=== PATIENT | female | born 1965 | race Caucasian/White ===

== ENCOUNTER 2022-07-04 23:26 | Emergency (ER) | payer BC ==
--- OUTSIDE RECORDS SUMMARY | 2022-07-04 23:29 | XMS REPORT | Continuity of Care Document ---
:1965 Author Organization [facility] t Address [address] [place] [address] [place] [id number] Care Team Providers Name Role Phone DAR Attending Clinician Unavailable Yoseph Attending Clinician Unavailable DAR Admitting Clinician Unavailable Yoseph Admitting Clinician Unavailable Payers Payer Name Policy Type Policy Number Effective Date Expiration Date [id number] 2013 00:00:00 [place] Problems This patient has no known problems. Allergies, Adverse Reactions, Alerts This patient has no known allergies or adverse reactions. Medications This patient has no known medications. Procedures This patient has no known procedures. Encounters Start End Encounter Admission Attending Care Care Encounter Source Date/Time Date/Time Type Type Clinicians Facility Department ID 2022-04-11 2022-04-11 Outpatient PAUL [facility] [id number] [place] 00:00:00 00:00:00 _BLAYNE [id number] da [facility] Program 2020-07-26 2020-07-26 Outpatient Yoseph [facility] G [id number] [place] 02:45:00 02:45:00 [id number] Results This patient has no known results.
--- NOTE | 2022-07-04 23:42 | EDPHYS ---
Physician Documentation [facility] Name: Tio Bhandari Age: 57 yrs Sex: Female : 1965 Arrival Date: 07/04/2022 Time: 23:29 Bed 7 Private MD: ED Physician Raymundo Moran HPI: 07/04 23:46 This 57 yrs old Female presents to ER via Ambulatory with complaints of Toothache, Jaw snw Pain. 23:46 The patient presents with broken tooth/teeth. The problem is located in the upper right snw second molar (#2). Onset: The symptoms/episode began/occurred suddenly, 2 day(s) ago, and became worse today. Duration: The symptoms are continuous. Associated signs and symptoms: The patient has no apparent associated signs or symptoms. Severity of symptoms: At their worst the symptoms were moderate. It is unknown whether or not the patient has had similar symptoms in the past. The patient has been recently seen by a physician: the patient's primary care provider, with different complaint(s), the patient was seen for back pain. 23:47 Pt placed dental cement to area, has taken motrin 800mg TID today without relief. snw Historical: - Allergies: 23:46 No Known Allergies; aa9 - PMHx: 23:47 Chronic back pain; aa9 - PSHx: 23:47 section; breast reduction; aa9 - Social history:: Smoking status: Reported history of juuling and/or vaping. ROS: 23:46 Constitutional: Negative for fever, chills, and weight loss, Eyes: Negative for injury, snw pain, redness, and discharge, Neck: Negative for injury, pain, and swelling, Cardiovascular: Negative for chest pain, palpitations, and edema, Respiratory: Negative for shortness of breath, cough, wheezing, and pleuritic chest pain, Abdomen/GI: Negative for abdominal pain, nausea, vomiting, diarrhea, and constipation, Back: Negative for injury and pain, : Negative for injury, bleeding, discharge, and swelling, MS/Extremity: Negative for injury and deformity, Skin: Negative for injury, rash, and discoloration, Neuro: Negative for headache, weakness, numbness, tingling, and seizure. 23:46 ENT: Positive for dental pain. Exam: 23:44 Constitutional: This is a well developed, well nourished patient who is awake, alert, snw and in no acute distress. Head/Face: Normocephalic, atraumatic. Eyes: Pupils equal round and reactive to light, extra-ocular motions intact. Lids and lashes normal. Conjunctiva and sclera are non-icteric and not injected. Cornea within normal limits. Periorbital areas with no swelling, redness, or edema. Neck: Trachea midline, no thyromegaly or masses palpated, and no cervical lymphadenopathy. Supple, full range of motion without nuchal rigidity, or vertebral point tenderness. No Meningismus. Chest/axilla: Normal chest wall appearance and motion. Nontender with no deformity. No lesions are appreciated. Cardiovascular: Regular rate and rhythm with a normal S1 and S2. No gallops, murmurs, or rubs. Normal PMI, no JVD. No pulse deficits. Respiratory: Lungs have equal breath sounds bilaterally, clear to auscultation and percussion. No rales, rhonchi or wheezes noted. No increased work of breathing, no retractions or nasal flaring. Abdomen/GI: Soft, non-tender, with normal bowel sounds. No distension or tympany. No guarding or rebound. No evidence of tenderness throughout. Skin: Warm, dry with normal turgor. Normal color with no rashes, no lesions, and no evidence of cellulitis. MS/ Extremity: Pulses equal, no cyanosis. Neurovascular intact. Full, normal range of motion. Neuro: Awake and alert, GCS 15, oriented to person, place, time, and situation. Cranial nerves II-XII grossly intact. Motor strength 5/5 in all extremities. Sensory grossly intact. Cerebellar exam normal. Normal gait. Psych: Awake, alert, with orientation to person, place and time. Behavior, mood, and affect are within normal limits. 23:44 ENT: External ear(s): are unremarkable, Nose: is normal, Mouth: is normal, Dental exam: dental caries, that is moderate, specifically in the upper right second molar (#2). 23:44 Back: pain, that is moderate, of the low back area, pt had injections today with her PCP. Vital Signs: 23:36 BP 172 / 104; Pulse 78; Pulse Ox 99% on R/A; aa9 23:44 BP 157 / 85; Pulse 68; Resp 18 S; Temp 97.5(O); Pulse Ox 98% on R/A; Weight 92.99 kg aa9 (R); Height 5 ft. 5 in. (165.10 cm) (R); Pain 10/; 23:44 Body Mass Index 34.11 (92.99 kg, 165.10 cm) aa9 MDM: 23:34 Patient medically screened. snw 23:46 Data reviewed: vital signs, nurses notes. Data interpreted: Pulse oximetry: on room air snw is 100 %. Interpretation: normal. Counseling: I had a detailed discussion with the patient and/or guardian regarding: the historical points, exam findings, and any diagnostic results supporting the discharge/admit diagnosis, the need for outpatient follow up, to return to the emergency department if symptoms worsen or persist or if there are any questions or concerns that arise at home. Special discussion: I have referred the patient to see his PCP for further evaluation of high blood pressure. Based on the history and exam findings, there is no indication for further emergent testing or inpatient evaluation. I discussed with the patient/guardian the need to see a dentist for further evaluation of the symptoms. Administered Medications: 23:53 Drug: Dilaudid (HYDROmorphone) 1 mg Route: IM; Site: right gluteus; lg3 23:53 Follow up: Response: No adverse reaction; Marked relief of symptoms lg3 23:53 Drug: Clindamycin 300 mg Route: PO; lg3 23:53 Follow up: Response: No adverse reaction lg3 Disposition: 07/05 01:12 Co-signature as Attending Physician, Raymundo Moran MD. rn Disposition Summary: 07/04/22 23:41 Discharge Ordered Location: Home snw Condition: Stable snw Diagnosis - Dental root caries snw - Elevated blood-pressure reading, without diagnosis of hypertension snw Followup: snw - With: Emergency Department - When: As needed - Reason: Worsening of condition Followup: snw - With: Private Physician - When: Tomorrow - Reason: Recheck today's complaints, Continuance of care, Re-evaluation by your physician Discharge Instructions: - Discharge Summary Sheet snw - Dental Caries, Adult snw - Dental Pain snw - Hypertension, Adult snw - Diet and Dental Disease snw - DASH Eating Plan snw - Form - Blood Pressure Record Sheet snw Forms: - Medication Reconciliation Form snw - Thank You Letter snw - Antibiotic Education snw - Prescription Opioid Use snw Prescriptions: - Clindamycin HCl 300 mg Oral Capsule - take 1 capsule by ORAL route every 6 hours for 10 days; 40 capsule; Refills: 0, snw Product Selection Permitted - Tylenol-Codeine #3 300 mg-30 mg Oral - take 1 tablet by ORAL route 3 times per day; 12 tablet; Refills: 0, Product snw Selection Permitted Signatures: Yeimi Olsen, LYNNE-C CHIEF ARCHITECT-Csnw Raymundo Moran MD MD rn Gibson, Lacie, RN RN lg3 Kayla Espinosa RN RN aa9 Corrections: (The following items were deleted from the chart) 07/04 23:47 23:46 PSHx: None; aa9 aa9
[2022-07-04] MEDS ORDERED: HYDROMORPHONE HCL 1 MG/ML INJ ONE (23:48)
--- NOTE | 2022-07-05 | ER ---
Nurse's Notes [facility] Name: Tio Bhandari Age: 57 yrs Sex: Female : 1965 Arrival Date: 07/04/2022 Time: 23:29 Bed 7 Private MD: Diagnosis: Dental root caries;Elevated blood-pressure reading, without diagnosis of hypertension Presentation: 07/04 23:44 Chief complaint: Patient states: my tooth hurts, It cracked and all the tooth crumbled, aa9 now its like horrible pain. Coronavirus screen: Vaccine status: Patient reports being unvaccinated. Ebola Screen: No symptoms or risks identified at this time. Initial Sepsis Screen: Does the patient meet any 2 criteria? No. Patient's initial sepsis screen is negative. Does the patient have a suspected source of infection? No. Patient's initial sepsis screen is negative. Risk Assessment: Do you want to hurt yourself or someone else? Patient reports no desire to harm self or others. Onset of symptoms was July 04, 2022. 23:44 Method Of Arrival: Ambulatory aa9 23:44 Acuity: FRANCK 4 aa9 Triage Assessment: 23:49 General: Appears uncomfortable, obese, Behavior is cooperative, anxious. Pain: aa9 Complains of pain in mouth Pain currently is 10 out of 10 on a pain scale. Noted to be grimacing, moaning. EENT: Reports pain in mouth. Neuro: Level of Consciousness is awake, alert, obeys commands, Oriented to person, place, time, situation. Cardiovascular: Patient's skin is warm and dry. Respiratory: Airway is patent Respiratory effort is even, unlabored. GI: No signs and/or symptoms were reported involving the gastrointestinal system. : No signs and/or symptoms were reported regarding the genitourinary system. Derm: No signs and/or symptoms reported regarding the dermatologic system. Musculoskeletal: No signs and/or symptoms reported regarding the musculoskeletal system. Historical: - Allergies: 23:46 No Known Allergies; aa9 - PMHx: 23:47 Chronic back pain; aa9 - PSHx: 23:47 section; breast reduction; aa9 - Social history:: Smoking status: Reported history of juuling and/or vaping. Screenin:50 Abuse screen: Denies threats or abuse. Denies injuries from another. Nutritional aa9 screening: No deficits noted. Tuberculosis screening: No symptoms or risk factors identified. Fall Risk None identified. Assessment: 23:53 General: Appears in no apparent distress. uncomfortable, Behavior is cooperative, lg3 anxious, fussy. Pain: Complains of pain in mouth. Neuro: No deficits noted. Neri Agitation-Sedation Scale (RASS): +1 Restless Level of Consciousness is awake, alert, obeys commands, Oriented to person, place, time, situation. Cardiovascular: No deficits noted. Denies chest pain, shortness of breath, Capillary refill < 3 seconds Clubbing of nail beds is absent JVD is absent Patient's skin is warm and dry. Respiratory: No deficits noted. Airway is patent Trachea midline Respiratory effort is even, unlabored, Respiratory pattern is regular, symmetrical. GI: No deficits noted. No signs and/or symptoms were reported involving the gastrointestinal system. Abdomen is round non-distended, obese. : No deficits noted. No signs and/or symptoms were reported regarding the genitourinary system. EENT: Oral mucosa is moist. Reports pain in mouth. Derm: No deficits noted. No signs and/or symptoms reported regarding the dermatologic system. Skin is intact, is healthy with good turgor, Skin is dry, Skin is normal, Skin temperature is warm. Musculoskeletal: No deficits noted. No signs and/or symptoms reported regarding the musculoskeletal system. Circulation, motion, and sensation intact. Range of motion: intact in all extremities. Vital Signs: 23:36 BP 172 / 104; Pulse 78; Pulse Ox 99% on R/A; aa9 23:44 BP 157 / 85; Pulse 68; Resp 18 S; Temp 97.5(O); Pulse Ox 98% on R/A; Weight 92.99 kg aa9 (R); Height 5 ft. 5 in. (165.10 cm) (R); Pain 10/10; 23:44 Body Mass Index 34.11 (92.99 kg, 165.10 cm) aa9 ED Course: 23:29 Patient arrived in ED. ja2 23:31 Yeimi Olsen FNP-C [facility]. snw 23:31 Raymundo Moran MD is Attending Physician. snw 23:45 Emilia Short RN is Primary Nurse. lg3 23:46 Triage completed. aa9 23:50 Arm band placed on right wrist. aa9 23:50 Patient has correct armband on for positive identification. Call light in reach. Adult aa9 w/ patient. 23:50 No provider procedures requiring assistance completed. Patient did not have IV access aa9 during this emergency room visit. Administered Medications: 23:53 Drug: Dilaudid (HYDROmorphone) 1 mg Route: IM; Site: right gluteus; lg3 23:53 Follow up: Response: No adverse reaction; Marked relief of symptoms lg3 23:53 Drug: Clindamycin 300 mg Route: PO; lg3 23:53 Follow up: Response: No adverse reaction lg3 Medication: 23:50 VIS not applicable for this client. aa9 Outcome: 23:41 Discharge ordered by . snw 23:53 Discharged to home ambulatory. lg3 23:53 Condition: stable 23:53 Discharge instructions given to patient, Instructed on discharge instructions, follow up and referral plans. medication usage, Demonstrated understanding of instructions, follow-up care, medications, Prescriptions given X 3. 23:59 Patient left the ED. lg3 Signatures: Yeimi Olsen, FINANCIAL DIRECTOR-C FINANCIAL DIRECTOR-Csnw Emilia Short, RN RN lg3 Ely Chaney Aylin, RN RN aa9 Corrections: (The following items were deleted from the chart) 23:47 23:46 PSHx: None; aa9 aa9
[2022-07-05 00:11] VITALS: BP 157/85; TEMP 97.5; O2SAT 98
== END 2022-07-04 23:59 | disposition home or self-care (01) ==
LOC: ER 23:26
DX: K02.7 Dental root caries (principal); R03.0 Elevated blood-pressure reading, without diagnosis of hypertension
CPT/HCPCS: 96372; 99283; J1170